=== PATIENT | male | born 1930 | race Caucasian/White ===

== ENCOUNTER → 2017-11-17 | Day surgery (SDC) | payer MEDICARE ==
[2017-11-16 16:07] VITALS: BMI 25.7
[~2017-11-17] MED LIST: PHENYLEPHRINE-NS 100 MCG/ML 10 ML SYRINGE ONE; PROPOFOL 40 ML ONE
[2017-11-17 11:44] LABS: #Eosinphils 0.3 thou/uL (0.0-0.7); #Lymphocytes 0.8 thou/uL (1.20-3.40); #Monocytes 0.6 thou/uL (0.11-0.59); %Basophils 0.2 % (0.0-1.0); %Eosinophils 4.1 % (0.0-10.0); %Lymphocytes 12.2 % (21.0-51.0); %Monocytes 8.5 % (0.0-10.0); %Neutrophils 75.1 % (42.0-75.0); Hemoglobin 12.6 g/dL (14.0-18.0); Mean Corpuscular HGB CONC 30.8 g/dL (32.0-36.0); Mean Corpuscular Hemoglobin 31.2 pg (27.0-31.0); Mean Platelet Volume 7.2 fL (7.4-10.4); Platelet Count 195 thou/uL (130-400); RBC Distribution Width 16.3 % (11.5-14.5); Red Blood Cell (RBC) Count 4.04 mill/uL (4.70-6.10); White Blood Cell (WBC) Count 6.6 thou/uL (4.8-10.8)
[2017-11-17 12:00] LABS: INR-International Normal Ratio 2.5; PTT 40.2 SEC (22.9-36.1); Prothrombin Time 27.4 SEC (12.0-14.7)
[2017-11-17 12:14] LABS: Anion Gap 9 mmol/L (10-20); BUN (Urea Nitrogen) 20 mg/dL (8.4-25.7); Calc. Creatinine Clearance 53 mL/min (70-130); Calcium 8.8 mg/dL (7.8-10.44); Carbon Dioxide 31 mmol/L (23-31); Chloride 106 mmol/L (98-107); Estimated GFR-MDRD 57; Glucose 80 mg/dL (83-110); Potassium 4.5 mmol/L (3.5-5.1); Sodium 141 mmol/L (136-145)
--- NOTE | 2017-11-17 18:29 | OP ---
DATE OF SERVICE: 11/17/2017 REASON FOR PROCEDURE: Mr. Adrian is an 87-year-old man with history of atrial arrhythmias, has had really good success of amiodarone suppression in the past, but for last 10 days, he has been maintain ing atrial fibrillation/atypical atrial flutter. He is here for internal cardioversion. His Coumadi n levels were adequate. PROCEDURE IN DETAIL: The patient received propofol by Anesthesia specialist. After adequate level o f sedation achieved, a synchronized 35 joule shock converted the patient back to an atrial tachycardi a about 100 beats per minute. Burst atrial therapy did put him back to atrial fibrillation and repea yesy 35 joule shock, although I was successfully terminate the atrial fibrillation returning rhythm at 80 beats per minute. The ICD was interrogated and reprogrammed during the procedure, but longevity is adequate at 6 years. The atrial preference pacing was set to track up to 90 beats per minute. Atrial ATPs are programme d on. CONCLUSION: Successful internal cardioversion and atrial arrhythmia. PLAN: Continue amiodarone at current dose and continue anticoagulation with warfarin.
--- NOTE | 2017-11-18 13:00 | EKG ---
Test Reason : PREOP Blood Pressure : / mmHG Vent. Rate : 070 BPM Atrial Rate : 227 BPM P-R Int : 000 ms QRS Dur : 194 ms QT Int : 460 ms P-R-T Axes : 000 -27 079 degrees QTc Int : 496 ms Electronic ventricular pacemaker When compared with ECG of 05-JAN-2013 11:01, No significant change was found Confirmed by TEVIN VALE, SSenait ([id number]) on 11/18/2017 1:00:31 PM Referred By: [facility] Confirmed By:DR. Enrique ABARCA MD
== END ==
LOC: CCL 10:59
PROVIDERS: ATTEND Internal Medicine Cardiovascular Disease
DX: I48.1 Persistent atrial fibrillation (principal); I42.8 Other cardiomyopathies; I42.0 Dilated cardiomyopathy; I50.22 Chronic systolic (congestive) heart failure; J44.9 Chronic obstructive pulmonary disease, unspecified; Z79.01 Long term (current) use of anticoagulants; Z79.82 Long term (current) use of aspirin; Z79.899 Other long term (current) drug therapy; Z95.810 Presence of automatic (implantable) cardiac defibrillator; Z91.041 Radiographic dye allergy status
CPT/HCPCS: 80048; 85025; 85610; 85730; 92960; 93005; 93010; J2704